=== PATIENT | female | born 1980 | race African-American/Black ===

== ENCOUNTER 2025-06-13 20:23 | Inpatient (IN) | payer MEDICAID, OTHER ==
[~2025-06-13] VITALS: Ht 157.5 cm; Wt 78.8 kg
[~2025-06-13 20:23] MED LIST: ACYC1TAB2 PO; ALPR1TAB2 PO; EMPA1TAB PO; FURO40TA4 PO; METO25TA93 PO; PANT40T PO; POTA-180 PO; SPIR25TA8 PO; TORS20TA19 PO
[2025-06-13] MEDS: FUROSEMIDE 20 MG TAB PO ONE (21:00)
--- NOTE | 2025-06-13 21:12 | ED.PDOC ---
History of Present Illness HPI Comments 44 y/o obese F, with a Hx of, recently, Dx AL amyloidosis and CHF, presents with c/c shortness of breath. Patient reports on, recently, moving from [place], earlier, today, prior to becoming short of breath. She comments on, usually, becoming short of breath with fluid retention secondary to her AL amyloidosis. Currently, she is seeking establishing chemotherapy care through [facility] but is not scheduled to be seen until the beginning of June 2025. No reported modifiers. No endorsement of any recent sick contact, travel, injuries, or further pertinent events or history. Denial fo any chest pain, cough, congestion, fever, chills, or further associated symptoms. Chief Complaint: Shortness of Breath Time Seen by MD: 20:40 Reviewed Notes: Nurses Notes, Medications, Allergies Allergies: Coded Allergies: Cephalexin (Verified Allergy, Intermediate, CHEST PAIN, 12/14/13) Home Meds Reported Medications Alprazolam (Xanax) 1 Mg Tab, 1 MG PO, TAB 12/14/13 Information Source: Patient Mode of Arrival: Ambulatory Severity: Moderate Timing: Hours Duration: Since onset Prehospital treatment: None Past Medical History PAST MEDICAL HISTORY: Anxiety, CHF Past Medical History (Other): AL amyloidosis Surgical History: Denies all surgeries Family History Family History (Other): depression Social History Smoker: Cigarettes, Less Than 1 Pack/Day Alcohol: Occasionally Drugs: Denies Drug Use Lives In: Home All Other Systems: Reviewed and Negative (Comprehensive review of systems are n egative unless stated in HPI) Physical Exam General Appearance: No Apparent Distress, Obese HEENT: Normal ENT Inspection, Pharynx Normal, TMs Normal Neck: Full Range of Motion, Non-Tender, Normal, Normal Inspection Respiratory: Chest Non-Tender, Lungs Clear, No Accessory Muscle Use, No Respiratory Distress, Normal Breath Sounds Cardiovascular: No Edema, No JVD, No Murmur, No Gallop, Normal Peripheral Pulses, Regular Rate/Rhythm Breast Exam: Deferred Gastrointestinal: No Organomegaly, Non Tender, No Pulsatile Mass, Normal Bowel Sounds, Soft Genitalia: Deferred Pelvic: Deferred Rectal: Deferred Extremities: No calf tenderness, Normal capillary refill, Normal inspection, Normal range of motion, Non-tender, No pedal edema Musculoskeletal : Apperance: Normal Neurologic: Alert, retail merchandising manager II-XII nml as Tested, No Motor Deficits, Normal Affect, Normal Mood, No Sensory Deficits Cerebellar Function: Normal Reflexes: Normal Skin: Dry, Normal Color, Warm Lymphatic: No Adenopathy Was a procedure done? Was a procedure done?: No Differential Dx Considerations may include: Acute CHF exacerbation, fluid retention, pulmonary effusion, PNA, URI, viral syndrome, NM, PE, among others X-Ray, Labs, Meds, VS Vital Signs Date Time Temp Pulse Resp B/P (MAP) Pulse Ox O2 Delivery O2 Flow Rate FiO2 06/13/25 20:26 97.5 104 20 113/78 100 97.5 Lab Test 06/13/25 21:22 Range/Units White Blood Count 14.4 H 4.4-10.8 10^3/uL Red Blood Count 3.75 L 4.0-5.20 10^6/uL Hemoglobin 10.2 L 12.2-16.2 g/dL Hematocrit 32.3 L 36.0-46.0 % Mean Corpuscular Volume 86.1 80.0-100.0 fL Mean Corpuscular Hemoglobin 27.2 L 28.0-32.0 pg Mean Corpuscular Hemoglobin Concent 31.5 L 32.0-36.0 g/dL Red Cell Distribution Width 28.9 H 11.8-14.3 % Platelet Count 344 140-450 10^3/uL Mean Platelet Volume 8.0 6.9-10.8 fL Neutrophils (%) (Auto) 70.5 37.0-80.0 % Lymphocytes (%) (Auto) 21.4 10.0-50.0 % Monocytes (%) (Auto) 6.7 0.0-12.0 % Eosinophils (%) (Auto) 0.8 0.0-7.0 % Basophils (%) (Auto) 0.6 0.0-2.0 % Neutrophils # (Auto) 10.2 H 1.6-8.6 10 ^3/uL Lymphocytes # (Auto) 3.1 0.4-5.4 10 ^3/uL Monocytes # (Auto) 1.0 0-1.3 10 ^3/uL Eosinophils # (Auto) 0.1 0-0.8 10 ^3/uL Basophils # (Auto) 0.1 0-0.2 10 ^3/uL Nucleated Red Blood Cells 0.7 % Sodium Level 143 136-145 mmol/L Potassium Level 3.9 3.5-5.1 mmol/L Chloride Level 105 98-107 mmol/L Carbon Dioxide Level 27 20-31 mmol/L Anion Gap 11 5-15 Blood Urea Nitrogen 12 9-23 mg/dL Creatinine 1.35 H 0.550-1.02 mg/dL Glomerular Filtration Rate Calc 50 >90 mL/min BUN/Creatinine Ratio 8.9 L 10.0-20.0 Serum Glucose 105 74-106 mg/dL Calcium Level 9.2 8.7-10.4 mg/dL Total Bilirubin 1.0 0.2-1.0 mg/dL Aspartate Amino Transferase (AST) 34 13-40 U/L Alanine Aminotransferase (ALT) 29 7-40 U/L Alkaline Phosphatase 70 46-116 U/L Troponin I High Sensitivity 101 *H </=34 ng/L B-Type Natriuretic Peptide 980.63 0-100 pg/mL Total Protein 7.1 5.7-8.2 g/dL Albumin 4.3 3.2-4.8 g/dL [place] [id number] Ph: [phone] DIAGNOSTIC IMAGING Diagnostic Imaging Report : [id number] Signed PATIENT: SALUD KINCAID ACCT: [id number] UNIT: [id number] : 1980 LOC: ER ROOM / BED: / AGE / SEX: 44 / F ADM STATUS: REG ER SERVICE 46 ORDERING PHYSICIAN: DONNELL LOUIS MD PROCEDURE(s): CXRP - CHEST PORTABLE REASON: SOB ORDER NUMBER(s): [id number], ACCESSION NUMBER(s): [id number] CHEST RADIOGRAPH REASON FOR EXAM: SOB COMPARISON: None TECHNIQUE: One view of the chest is provided FINDINGS: The cardiomediastinal silhouette is within normal limits for technique. There is no focal airspace disease. There is no significant pleural effusion. No acute bony abnormality is identified. IMPRESSION: No radiographic evidence of acute cardiopulmonary process. ATED BY: MARGARITO NGUYEN MD DICTATED DATE/TIME: 06/13/252123 SIGNED BY: MARGARITO NGUYEN MD SIGNED DATE/TIME: 06/13/252123 CC: Time of 1ST Reevaluation: 21:10 Reevaluation 1ST: Unchanged Patient Education/Counseling: Treatment, Need For Follow Up Family Education/Counseling: No Family Present SEPSIS Sepsis Screen Date sepsis recognized/suspect: Jun 13, 2025 Time Sepsis recognized/suspect: 2029 Recent Procedure: No On Antibiotic Therapy: No Respiratory Rate >20: No Heart Rate >90: Yes Temp<36 C (96.8 F) or >38.3 C: No SBP <90 or MAP <65 mmHG: No New Acute Mental Status Change: No Is the patient on CPAP, BIPAP,: No Physician Orders Chest Portable (06/13/25 20:47) Troponin-I Hs (06/13/25 21:47) Troponin-I Hs (06/13/25 23:47) Vital Signs Date Time Temp Pulse Resp B/P (MAP) Pulse Ox O2 Delivery O2 Flow Rate FiO2 06/13/25 20:26 97.5 104 20 113/78 100 97.5 Laboratory Tests Test 06/13/25 21:22 White Blood Count 14.4 10^3/uL (4.4-10.8) H Departure 1 Departure Time of Disposition: 23:02 Impression: Primary Impression: Amyloidosis Additional Impressions: Congestive heart failure Acute coronary syndrome Disposition: ADMITTED INPATIENT Admit to: Tele Condition: Guarded Comments 44-year-old female with history of amyloidosis and CHF now complaining of shortness of breath especially when she lays down. Her troponin was elevated 100. BNP was quite elevated as well. Patient was given Lasix and aspirin. Patient will need to be admitted for amyloidosis, congestive heart failure and acute coronary syndrome Critical Care Note Critical Care Time?: Yes (35 min-critical care time only) Critical care comment: Total critical care time: Approximately 36 minutes Due to a high probability of clinically significant, life threatening deterioration, the patient required my highest level of preparedness to intervene emergently and I personally spent this critical care time directly and personally managing the patient. This critical care time included obtaining a history; examining the patient; pulse oximetry; ordering and review of studies; arranging urgent treatment with development of a management plan; evaluation of patient's response to treatment; frequent reassessment; and, discussions with other providers. This critical care time was performed to assess and manage the high probability of imminent, life-threatening deterioration that could result in multi-organ failure. It was exclusive of separately billable procedures and treating other patients. Stability Stability form required: No Heart Score Heart Score: Heart Score Response (Comments) Value History Moderate Suspicious 1 EKG Repolarization Disturb 1 Age <45 0 Risk Factors 1 or 2 risk factors 1 Troponin 1-2 x's Normal limit 1 Total 4 I personally scribed for DONNELL LOUIS MD ([email or web address]) on 06/13/25 at 21:12. Electronically submitted by Lencho Patel ([email or web address]). I personally scribed for DONNELL LOUIS MD ([email or web address]) on 06/13/25 at 22:04. Electronically submitted by Lencho Patel ([email or web address]). I personally scribed for DONNELL LOUIS MD ([email or web address]) on 06/13/25 at 23:00. Electronically submitted by Lencho Patel ([email or web address]). DONNELL LOUIS MD Jun 13, 2025 21:12
--- NOTE | 2025-06-13 21:26 | DVH ---
CHEST RADIOGRAPH REASON FOR EXAM: SOB COMPARISON: None TECHNIQUE: One view of the chest is provided FINDINGS: The cardiomediastinal silhouette is within normal limits for technique. There is no focal a irspace disease. There is no significant pleural effusion. No acute bony abnormality is identified. IMPRESSION: No radiographic evidence of acute cardiopulmonary process.
[2025-06-13 21:54] LABS: Hematocrit 32.3 % (36.0-46.0); Hemoglobin 10.2 g/dL (12.2-16.2); Mean Corpuscular Hemoglobin 27.2 pg (28.0-32.0); Mean Corpuscular Volume 86.1 fL (80.0-100.0); Nucleated Red Blood Cells % 0.7 %
[2025-06-13 22:12] LABS: Alanine Aminotransferase 29 U/L (7-40); Albumin 4.3 g/dL (3.2-4.8); Alkaline Phosphatase 70 U/L (46-116); Anion Gap 11 (5-15); BUN/Creatinine Ratio 8.9 (10.0-20.0); Blood Urea Nitrogen 12 mg/dL (9-23); Calcium 9.2 mg/dL (8.7-10.4); Carbon Dioxide 27 mmol/L (20-31); Chloride 105 mmol/L (98-107); Glucose 105 mg/dL (74-106); Potassium 3.9 mmol/L (3.5-5.1); Sodium 143 mmol/L (136-145); Total Protein 7.1 g/dL (5.7-8.2)
[2025-06-13 22:13] LABS: Bilirubin, Total 1.0 mg/dL (0.2-1.0)
[2025-06-13 23:48] VITALS: RESP 19; O2SAT 98
[2025-06-13] MEDS: FUROSEMIDE 40 MG/4 ML VIAL IV ONE (23:55)
[2025-06-14] VITALS (11 sets, daily range): BP systolic 98–117; BP diastolic 57–86; PULSE 52–103; RESP 14–19; TEMP 97.2–97.9; O2SAT 92–98
[2025-06-14] MEDS ORDERED: MORPHINE SULFATE INJ 2 MG/ml SYRG IV PRN
[2025-06-14] MEDS ORDERED: NITROGLYCERIN 0.4 MG SL TAB SL PRN
[2025-06-14] MEDS ORDERED: TEMAZEPAM 15 MG CAP PO PRN (01:00)
--- NOTE | 2025-06-14 04:37 | DVHHP2 ---
History of Present Illness Reason for Visit: Shortness for breath History of Present Illness 44-year-old female presents for evaluation of shortness for breath. Patient endorses a one day history of shortness for breath with associated chest tightness. Denies fever or chills. States having a nonproductive cough. Patient also reports a recent diagnosis of amyloidosis. Past Medical History Congestive heart failure, amyloidosis, hypertension Past Surgical History Denies Family History Noncontributory Smoke: <1 pack per day ALCOHOL: occassional Drugs: None Review of Systems Review of Systems Review of systems are currently negative otherwise addressed in HPI. Allergies: Coded Allergies: Cephalexin (Verified Allergy, Intermediate, CHEST PAIN, 12/14/13) Medications Current Medications Medications Dose Ordered Sig/Semaj Route Start Time Stop Time Status Last Admin Dose Admin Nitroglycerin 0.4 mg Q5MINP PRN SL 06/14/25 00:00 Morphine Sulfate 2 mg Q30M PRN IV 06/14/25 00:00 Aspirin 162 mg DAILY PO 06/14/25 10:00 Atorvastatin Calcium 10 mg HS PO 06/14/25 22:00 Empaglifozin 10 mg DAILY PO 06/14/25 10:00 Furosemide 20 mg BIDD IV 06/14/25 06:00 Spironolactone 25 mg DAILY PO 06/14/25 10:00 Metoprolol Succinate 25 mg DAILY PO 06/14/25 10:00 Albuterol 2.5 mg Q6HPRN PRN NEB 06/14/25 01:00 Acetaminophen/ Hydrocodone Bitart 1 tab Q4HP PRN PO 06/14/25 01:00 Temazepam 15 mg QHSP PRN PO 06/14/25 01:00 Ondansetron HCl 4 mg Q4HP PRN IV 06/14/25 01:00 Acetaminophen 650 mg Q6HP PRN PO 06/14/25 01:00 Exam Vital Signs Vital Signs Date Time Temp Pulse Resp B/P (MAP) Pulse Ox O2 Delivery O2 Flow Rate FiO2 06/14/25 01:04 98 Room Air* 0 21 06/14/25 01:00 97.5 96 19 113/82 97.5 Exam Gen: 44-year-old female in mild distress. Skin: Warm, dry, normal color and texture, no rash. HEENT: Normocephalic atraumatic, mucous membranes moist and pink. Neck: Cervical and supraclavicular nodes normal without enlargement, trachea is midline, thyroid gland is normal without masses. Pulmonary: Diminished breath sounds bilaterally Cardiac: Regular rate and rhythm. No murmur Abdomen: Soft, nontender, nondistended, bowel sounds present all 4 quadrants, no guarding, no rigidity, no organomegaly. Extremities: No cyanosis, clubbing, no edema Neuro: Cranial nerves II through XII grossly intact, normal affect and speech, no focal motor deficits. Labs/Xrays ORDERING PHYSICIAN: DONNELL LOUIS MD PROCEDURE(s): CXRP - CHEST PORTABLE REASON: SOB ORDER NUMBER(s): [id number], ACCESSION NUMBER(s): [id number] CHEST RADIOGRAPH REASON FOR EXAM: SOB COMPARISON: None TECHNIQUE: One view of the chest is provided FINDINGS: The cardiomediastinal silhouette is within normal limits for technique. There is no focal airspace disease. There is no significant pleural effusion. No acute bony abnormality is identified. IMPRESSION: No radiographic evidence of acute cardiopulmonary process. Labs Test 06/14/25 00:29 06/13/25 21:22 Range/Units Troponin I High Sensitivity 108 *H </=34 ng/L White Blood Count 14.4 H 4.4-10.8 10^3/uL Red Blood Count 3.75 L 4.0-5.20 10^6/uL Hemoglobin 10.2 L 12.2-16.2 g/dL Hematocrit 32.3 L 36.0-46.0 % Mean Corpuscular Volume 86.1 80.0-100.0 fL Mean Corpuscular Hemoglobin 27.2 L 28.0-32.0 pg Mean Corpuscular Hemoglobin Concent 31.5 L 32.0-36.0 g/dL Red Cell Distribution Width 28.9 H 11.8-14.3 % Platelet Count 344 140-450 10^3/uL Mean Platelet Volume 8.0 6.9-10.8 fL Neutrophils (%) (Auto) 70.5 37.0-80.0 % Lymphocytes (%) (Auto) 21.4 10.0-50.0 % Monocytes (%) (Auto) 6.7 0.0-12.0 % Eosinophils (%) (Auto) 0.8 0.0-7.0 % Basophils (%) (Auto) 0.6 0.0-2.0 % Neutrophils # (Auto) 10.2 H 1.6-8.6 10 ^3/uL Lymphocytes # (Auto) 3.1 0.4-5.4 10 ^3/uL Monocytes # (Auto) 1.0 0-1.3 10 ^3/uL Eosinophils # (Auto) 0.1 0-0.8 10 ^3/uL Basophils # (Auto) 0.1 0-0.2 10 ^3/uL Nucleated Red Blood Cells 0.7 % Sodium Level 143 136-145 mmol/L Potassium Level 3.9 3.5-5.1 mmol/L Chloride Level 105 98-107 mmol/L Carbon Dioxide Level 27 20-31 mmol/L Anion Gap 11 5-15 Blood Urea Nitrogen 12 9-23 mg/dL Creatinine 1.35 H 0.550-1.02 mg/dL Glomerular Filtration Rate Calc 50 >90 mL/min BUN/Creatinine Ratio 8.9 L 10.0-20.0 Serum Glucose 105 74-106 mg/dL Calcium Level 9.2 8.7-10.4 mg/dL Total Bilirubin 1.0 0.2-1.0 mg/dL Aspartate Amino Transferase (AST) 34 13-40 U/L Alanine Aminotransferase (ALT) 29 7-40 U/L Alkaline Phosphatase 70 46-116 U/L B-Type Natriuretic Peptide 980.63 0-100 pg/mL Total Protein 7.1 5.7-8.2 g/dL Albumin 4.3 3.2-4.8 g/dL SEPSIS Sepsis Screen Date sepsis recognized/suspect: Jun 13, 2025 Time Sepsis recognized/suspect: 2348 Recent Procedure: No On Antibiotic Therapy: No Respiratory Rate >20: No Heart Rate >90: No Temp<36 C (96.8 F) or >38.3 C: No SBP <90 or MAP <65 mmHG: No New Acute Mental Status Change: No Is the patient on CPAP, BIPAP,: No Physician Orders Chest Portable (06/13/25 20:47) Admit (06/13/25 23:57) Nitroglycerin Sublingual (Ntrostat Subli (06/14/25 00:00) Morphine Sulfate Injection (06/14/25 00:00) Stat Ekg For Chest Pain (06/13/25 23:57) Notify Md Of Changes From Base (06/13/25 23:57) Powder Carrier For 24 Hours (06/13/25 23:57) Emergency Dysrhythmia Protocol (06/13/25 23:57) Rhythm Strips Once Every Shift (06/13/25 23:57) Oxygen By Nasal Cannula (06/13/25 23:57) Aspirin Tablet (06/14/25 10:00) Atorvastatin (Lipitor) (06/14/25 22:00) * Cardiology Consult (06/14/25 00:50) Empagliflozin (Jardiance) (06/14/25 10:00) Furosemide Injection (Lasix Injection) (06/14/25 06:00) Spironolactone (Aldactone) (06/14/25 10:00) Metoprolol Xl Succinate (Toprol Xl) (06/14/25 10:00) Albuterol Medneb (Ventolin Medneb) (06/14/25 01:00) * Hematology/Oncology Consult (06/14/25 00:50) Basic Metabolic Panel (06/14/25 04:00) Hydrocodone-Acet 5/325mg Tab (Weinert 5/32 (06/14/25 01:00) Temazepam (Restoril) (06/14/25 01:00) Ondansetron Hcl (Zofran) (06/14/25 01:00) Cardiac Diet-2gna,Lofat,Lochol (06/14/25 Breakfast) Echo 2d Mode Cardiac Dop (06/14/25 00:50) Condition: Stable (06/14/25 00:50) Acetaminophen Tablet (Tylenol Tablet) (06/14/25 01:00) Bedrest With Bathroom Privileg (06/14/25 00:50) Vital Signs Date Time Temp Pulse Resp B/P (MAP) Pulse Ox O2 Delivery O2 Flow Rate FiO2 06/14/25 01:04 98 Room Air* 0 21 06/14/25 01:04 98 Nasal Cannula 0.0 06/14/25 01:00 97.5 96 19 113/82 98 21 97.5 06/14/25 01:00 98 0.0 21 06/13/25 23:55 113/82 06/13/25 23:48 19 98 Room Air* 0 21 06/13/25 23:43 96 19 113/82 (92) 96 Laboratory Tests Test 06/13/25 21:22 White Blood Count 14.4 10^3/uL (4.4-10.8) H Medications Medications Dose Ordered Sig/Semaj Route Start Time Stop Time Status Last Admin Dose Admin Aspirin 162 mg ONCE ONCE PO 06/13/25 23:00 06/13/25 23:01 DC 06/13/25 23:55 162 MG Furosemide 40 mg ONCE ONCE IV 06/13/25 23:00 06/13/25 23:01 DC 06/13/25 23:55 40 MG Assessment/Plan Assessment/Plan Assessment On chronic respiratory failure CHF exacerbation Amyloidosis Elevated troponin Acute kidney injury Plan Admit the patient to telemetry to the hospitalist Cardiology consultation Hematology consult Resume home medications Continue treatment per orders. Plan discussed with: Patient My Orders Orders - NOÉ ESPINOSA AGACNP Procedure Category Date Status Time Admit ADMIT 06/13/25 Transmitted 23:57 Nitroglycerin PHA 06/14/25 In Process Sublingual (Ntrostat 00:00 Morphine Sulfate PHA 06/14/25 In Process Injection 00:00 Stat Ekg For Chest DALJIT 06/13/25 In Process Pain 23:57 Notify Of Changes [facility] 06/13/25 In Process From Base 23:57 Powder Carrier For [facility] 06/13/25 In Process 24 Hours 23:57 Emergency Dysrhythmia [facility] 06/13/25 In Process Protocol 23:57 Rhythm Strips Once [facility] 06/13/25 In Process Every Shift 23:57 Oxygen By Nasal RT 06/13/25 Transmitted Cannula 23:57 Aspirin Tablet PHA 06/14/25 In Process 10:00 Atorvastatin (Lipitor) PHA 06/14/25 In Process 22:00 * Cardiology Consult CONS 06/14/25 Transmitted 00:50 Empagliflozin PHA 06/14/25 In Process (Jardiance) 10:00 Furosemide Injection PHA 06/14/25 In Process (Lasix Injection) 06:00 Spironolactone PHA 06/14/25 In Process (Aldactone) 10:00 Metoprolol Xl PHA 06/14/25 In Process Succinate (Toprol Xl) 10:00 Albuterol Medneb PHA 06/14/25 In Process (Ventolin Medneb) 01:00 * Hematology/Oncology CONS 06/14/25 Transmitted Consult 00:50 Basic Metabolic Panel LAB 06/14/25 Logged 04:00 Hydrocodone-Acet PHA 06/14/25 In Process 5/325mg Tab (Weinert 01:00 Temazepam (Restoril) PHA 06/14/25 In Process 01:00 Ondansetron Hcl PHA 06/14/25 In Process (Zofran) 01:00 Cardiac DIET 06/14/25 Transmitted Diet-2gna,Lofat,Lochol Breakfast Echo 2d Mode Cardiac US 06/14/25 Logged DOP 00:50 Condition: Stable DALJIT 06/14/25 In Process 00:50 Acetaminophen Tablet PHA 06/14/25 In Process (Tylenol Tablet) 01:00 Bedrest With Bathroom DALJIT 06/14/25 In Process Privileg 00:50 Date of Service: Jun 14, 2025 Billing Provider: NOÉ ESPINOSA Common Visit Codes: [id number] INP/OBS CARE (HIGH) NOÉ ESPINOSA Jun 14, 2025 04:37
[2025-06-14] MEDS: FUROSEMIDE 20 MG/2 ML VIAL IV SCH (06:11)
[2025-06-14 06:33] LABS: Anion Gap 13 (5-15); Carbon Dioxide 26 mmol/L (20-31); Chloride 103 mmol/L (98-107); Potassium 4.4 mmol/L (3.5-5.1); Sodium 142 mmol/L (136-145)
[2025-06-14 06:34] LABS: Calcium 9.6 mg/dL (8.7-10.4)
[2025-06-14 06:39] LABS: Glucose 92 mg/dL (74-106)
[2025-06-14 06:40] LABS: BUN/Creatinine Ratio 11.4 (10.0-20.0); Blood Urea Nitrogen 13 mg/dL (9-23)
[2025-06-14] MEDS: METOPROLOL SUCCINATE XL 50 MG TAB PO SCH (10:26)
[2025-06-14] MEDS: EMPAGLIFLOZIN 10 MG TAB PO SCH (10:26)
[2025-06-14] MEDS: SPIRONOLACTONE 25 MG TAB PO SCH (10:26)
[2025-06-14] MEDS ORDERED: POTA1TAB4 (12:46)
[2025-06-14] MEDS ORDERED: PANT40TA57 PO (12:51)
--- NOTE | 2025-06-14 18:38 | DVHSR ---
APPROVED REPORT EXAM: Two-dimensional and M-mode echocardiogram with Doppler and color Doppler. Blood Pressure: 105/73 mmHg INDICATION EF RISK FACTORS Height: 5'2", Weight: 171 DIMENSIONS LVDd3.5 (3.8-5.7cm)LA (2D)4.8 (1.9-4.0cm)Aortic Root3.1 (2.0-3.7cm) LVDs2.6 (2.5-4.0cm)LA (MM) (1.9-4.0cm)Aortic Cusp Exc1.8 (1.5-2.0cm) EF (%) 53.0 (55-70%)Rt. Atrium3.8 (1.9-4.0cm)Asc. Aorta cm IVSd1.5 (0.7-1.1cm)RV (D)3.5 (1.8-2.4cm) PWd1.7 (0.7-1.1cm) Mitral Valve MitralMitral Stenosis E wave0.87m/sMV Mean GR.mmHg A wave0.25m/sMV Peak GR.mmHg E/A ratio3.52D MVAcm2 DECEL [id number] 1/2 Timems Aortic Valve Aortic ValveAortic Stenosis V11.18m/Mitzy Mean GR.6mmHg V21.60m/Mitzy Peak GR.10mmHg LVOT Diameter1.7 (1.8-2.4cm)Doppler AVA1.67cm2 Pulmonic Valve V20.73m/s Tricuspid Valve TR Velocity2.74m/s [id number] Conclusion MODERATE DEGREE LVH AND MODERATE DEGREE LV DIASTOLIC DYSFUNCTION LV EF IS 60% AND IS NORMAL NORMAL VALVES NO EFFUSION
[2025-06-14] MEDS: ATORVASTATIN 20 MG TAB PO SCH (21:07)
[2025-06-14] MEDS: ACETAMINOPHEN 325 MG TAB PO PRN (21:11)
[2025-06-15] VITALS (11 sets, daily range): BP systolic 94–102; BP diastolic 62–74; PULSE 70–101; RESP 12–18; TEMP 97–98.3; O2SAT 97–100
[2025-06-15] MEDS: FUROSEMIDE 20 MG TAB PO SCH (09:19)
--- NOTE | 2025-06-15 12:21 | DVHPN2 ---
Subjective States breathing has not improved Reviewed: Care Plan, H&P, Labs, Medications Changes from previous H/P or p: No Changes General: Per HPI Objective Vitals Vital Signs Date Time Temp Pulse Resp B/P (MAP) Pulse Ox O2 Delivery O2 Flow Rate FiO2 06/15/25 09:20 97.6 84 17 101/62 (75) 97 97.6 06/15/25 07:47 Room Air* 0 21 General Appearance: Alert, Oriented X3, Cooperative, No acute distress HEENT: Atraumatic, PERRLA Lungs: Clear to auscultation, Normal air movement Cardiovascular: Normal S1, Normal S2 Abdomen: Normal bowel sounds, Soft, No tenderness, No hepatospenomegaly Genitourinary: No Apparent Abnormalities Musculoskeletal: Normal sensory function, Normal motor function Skin: Dry, Intact Psych/Mental Status: Mental status NL, Mood NL Medications Current Medications Medications Dose Ordered Sig/Semaj Route Start Time Stop Time Status Last Admin Dose Admin Nitroglycerin 0.4 mg Q5MINP PRN SL 06/14/25 00:00 Morphine Sulfate 2 mg Q30M PRN IV 06/14/25 00:00 Aspirin 162 mg DAILY PO 06/14/25 10:00 06/15/25 09:18 162 MG Atorvastatin Calcium 10 mg HS PO 06/14/25 22:00 06/14/25 21:07 10 MG Spironolactone 25 mg DAILY PO 06/14/25 10:00 06/15/25 09:19 25 MG Metoprolol Succinate 25 mg DAILY PO 06/14/25 10:00 06/15/25 09:19 25 MG Albuterol 2.5 mg Q6HPRN PRN NEB 06/14/25 01:00 Acetaminophen/ Hydrocodone Bitart 1 tab Q4HP PRN PO 06/14/25 01:00 Temazepam 15 mg QHSP PRN PO 06/14/25 01:00 Ondansetron HCl 4 mg Q4HP PRN IV 06/14/25 01:00 Acetaminophen 650 mg Q6HP PRN PO 06/14/25 01:00 06/14/25 21:11 650 MG Furosemide 20 mg DAILY PO 06/15/25 10:00 06/15/25 09:19 20 MG Laboratory Results Laboratory Tests 06/13/25 21:22 06/14/25 05:49 Labs and/or images reviewed: Labs reviewed by me, Image(s) reviewed by me Assessment/Plan Assessment/Plan Impression: -AL Amyloidosis -Decompensated diastolic HF -Obesity -SIRS Plan: -echocardiogram -check D-dimer, ESR, CRP -continue beta-naif therapy, add HAMZAH inhibitor if blood pressure permits -IV diuresis -social service consultation to transfer to higher level of care Total time spent with patient discussing and formulating plan of care: 35 minutes. This medical document was created using an electronic medical record system with [employer] dictation system. Although this document has been carefully reviewed, there may still be some phonetic and typographical errors. These areas are purely typographical due to imperfections of the software programs, and do not reflect any compromise in the patient's medical care. Plan discussed with: Patient, Other (Rn) My Orders Orders - CEZAR GARNETT NP Procedure Category Date Status Time * Wet Inspector Optical Glass CONS 06/14/25 Transmitted Consult Furosemide Tablet PHA 06/15/25 In Process (Lasix Tablet) 10:00 * Cardiology Consult CONS 06/15/25 Verified 12:07 Basic Metabolic Panel LAB 06/16/25 Verified 04:00 Chest Portable XY 06/15/25 Verified 12:07 D-Dimer LAB 06/15/25 Verified 12:07 Lisinopril Tablet PHA 06/16/25 Verified (Zestril Tablet) 10:00 Date of Service: Jun 15, 2025 Billing Provider: CEZAR GARNETT NP Common Visit Codes: [id number] INP/OBS CARE(HIGH) CEZAR GARNETT NP Jun 15, 2025 12:21
--- NOTE | 2025-06-15 12:23 | DVHPN2 ---
Subjective States breathing has not improved Reviewed: Care Plan, H&P, Labs, Medications Changes from previous H/P or p: No Changes General: Per HPI Objective Vitals Vital Signs Date Time Temp Pulse Resp B/P (MAP) Pulse Ox O2 Delivery O2 Flow Rate FiO2 06/15/25 09:20 97.6 84 17 101/62 (75) 97 97.6 06/15/25 07:47 Room Air* 0 21 General Appearance: Alert, Oriented X3, Cooperative, No acute distress HEENT: Atraumatic, PERRLA Lungs: Clear to auscultation, Normal air movement Cardiovascular: Normal S1, Normal S2 Abdomen: Normal bowel sounds, Soft, No tenderness, No hepatospenomegaly Genitourinary: No Apparent Abnormalities Musculoskeletal: Normal sensory function, Normal motor function Skin: Dry, Intact Psych/Mental Status: Mental status NL, Mood NL Medications Current Medications Medications Dose Ordered Sig/Semaj Route Start Time Stop Time Status Last Admin Dose Admin Nitroglycerin 0.4 mg Q5MINP PRN SL 06/14/25 00:00 Morphine Sulfate 2 mg Q30M PRN IV 06/14/25 00:00 Aspirin 162 mg DAILY PO 06/14/25 10:00 06/15/25 09:18 162 MG Atorvastatin Calcium 10 mg HS PO 06/14/25 22:00 06/14/25 21:07 10 MG Spironolactone 25 mg DAILY PO 06/14/25 10:00 06/15/25 09:19 25 MG Metoprolol Succinate 25 mg DAILY PO 06/14/25 10:00 06/15/25 09:19 25 MG Albuterol 2.5 mg Q6HPRN PRN NEB 06/14/25 01:00 Acetaminophen/ Hydrocodone Bitart 1 tab Q4HP PRN PO 06/14/25 01:00 Temazepam 15 mg QHSP PRN PO 06/14/25 01:00 Ondansetron HCl 4 mg Q4HP PRN IV 06/14/25 01:00 Acetaminophen 650 mg Q6HP PRN PO 06/14/25 01:00 06/14/25 21:11 650 MG Furosemide 20 mg DAILY PO 06/15/25 10:00 06/15/25 09:19 20 MG Laboratory Results Laboratory Tests 06/13/25 21:22 06/14/25 05:49 Labs and/or images reviewed: Labs reviewed by me Assessment/Plan Assessment/Plan Impression: -AL Amyloidosis -Decompensated diastolic HF -Obesity -SIRS -Complicated Cystitis Plan: -Discussed with Dr. Alonzo, Urology. Holding cystoscopy, hematuria improved. -Continue IVF -Urine Culture -Continue Rocephin -Repeat labs in am -Social Service consult to transfer to [facility] Plan discussed with: Patient My Orders Orders - CEZAR GARNETT WATCH CASE POLISHER Procedure Category Date Status Time * Engineering Technician Parking CONS 06/14/25 Transmitted Consult Furosemide Tablet PHA 06/15/25 In Process (Lasix Tablet) 10:00 * Cardiology Consult CONS 06/15/25 Verified 12:07 Basic Metabolic Panel LAB 06/16/25 Verified 04:00 Chest Portable XY 06/15/25 Verified 12:07 D-Dimer LAB 06/15/25 Verified 12:07 Lisinopril Tablet PHA 06/16/25 Verified (Zestril Tablet) 10:00 Date of Service: Jun 14, 2025 Billing Provider: CEZAR GARNETT NP Common Visit Codes: [id number] INP/OBS CARE(HIGH) CEZAR GARNETT NP Jun 15, 2025 12:23
--- NOTE | 2025-06-15 13:48 | DVH ---
EXAM: XY CHEST PORTABLE Indication: chf Technique: Single frontal view of the chest was obtained Comparison: XY CHEST PORTABLE on DOS: 06/13/25 FINDINGS: Lines and Tubes: None Lungs: No focal consolidation. Pleura: No effusion. No pneumothorax. Cardiomediastinal contours: Unremarkable Bones: No acute osseous abnormality. IMPRESSION: No acute cardiopulmonary disease.
--- NOTE | 2025-06-15 13:53 | DVHINCON2 ---
Date Seen: Jun 15, 2025 Referring Physician JENNY Richard Reason for Consultation Cardiac amyloidosis History of Present Illness This is a 44-year-old female patient who presents to emergency room with chief complaint of worsening shortness of breath for two days prior to emergency room arrival. The patient reports that she recently moved back to this area from [place]. She reports noticing symptoms during her move across country. Cardiology has now been consulted for cardiac amyloidosis. No initial twelve lead electrocardiogram was obtained in the emergency room on admission. A twelve lead electrocardiogram was ordered at time of assessment and reveals normal sinus rhythm with nonspecific ST depression to lateral leads. At the time of assessment, the patient denies any shortness of breath, chest pain, palpitations, or other cardiac symptoms. Initial troponin level of 101ng/L with flat trend thereafter. Significant past medical history includes AL (light chain) cardiac amyloidosis, hypertension, carpal tunnel syndrome, chronic anemia, and obesity. The patient reports that she was recently given the diagnosis of AL light chain amyloidosis. She had a full workup at [facility] in [place] including and a myocardial biopsy, cardiac MRI, and a bone marrow biopsy. She reports losing her job and losing her insurance causing her delay in care and ultimately having to move back to this area with family. The patient states that she has a pending upcoming appointment at [facility] with oncology on June 23, 2025. Past Medical History Past medical history reviewed. No other significant than mentioned above. Past Surgical History Denies any previous surgeries Family History: Hypertension G8 MOTHER G8 FATHER Family History Family history reviewed. Social History Patient has a five pack-year history, quit smoking approximately five years ago Denies any illicit drug use Denies alcohol use Allergies: Coded Allergies: Cephalexin (Verified Allergy, Intermediate, CHEST PAIN, 12/14/13) Home Meds Reported Medications Furosemide (Furosemide) 40 Mg Tab, 1 TAB PO DAILY for 30 Days, #30 06/15/25 Acyclovir (Acyclovir) 400 Mg Tab, 1 TAB PO BID for 30 Days, #60 06/15/25 Pantoprazole Sodium Sesquihydr (Pantoprazole Sodium) 40 Mg Tab, 1 TAB PO DAILY for 30 Days, #30 06/15/25 Potassium Chloride (Potassium Chloride ER) 20 Meq Tab, 1 TAB PO DAILY for 30 Days, #30 06/15/25 Torsemide Injection (Torsemide) 20 Mg Tab, 1 TAB PO DAILY for 30 Days, #30 06/14/25 Metoprolol Succinate (Metoprolol Succinate Er) 25 Mg Tab, 0.5 TAB PO DAILY for 90 Days, #45 06/14/25 Spironolactone (Spironolactone) 25 Mg Tab, 1 TAB PO DAILY for 30 Days, #30 06/14/25 Empagliflozin (Jardiance) 10 Mg Tab, 1 TAB PO DAILY for 30 Days, #30 06/14/25 Home Meds Home medications reviewed. Current Medications Current Medications Medications (Trade) Dose Ordered Sig/Semaj Route PRN Reason Start Time Stop Time Status Last Admin Atorvastatin Calcium (Lipitor) 10 mg HS PO 06/14/25 22:00 06/14/25 21:07 Furosemide (Lasix Tablet) 20 mg DAILY PO 06/15/25 10:00 06/15/25 09:19 Lisinopril (Zestril Tablet) 2.5 mg DAILY PO 06/16/25 10:00 Review of Systems Constitutional: No symptom reported Ears, Nose, & Throat: No symptom reported Eyes: No symptom reported Neurological: No symptoms reported Pulmonary/Respiratory: Shortness of breath Cardiovascular: No symptom reported Gastrointestinal: No symptom reported Genitourinary: No symptom reported Musculoskeletal: No symptom reported Skin: No symptom reported Psychiatric: No symptom reported Endocrine: No symptom reported Hematologic/Lymphatic: No symptom reported Vital Signs Vital Signs Date Time Temp Pulse Resp B/P (MAP) Pulse Ox O2 Delivery O2 Flow Rate FiO2 06/15/25 12:42 97.6 78 18 94/67 (76) 98 97.6 06/15/25 07:47 Room Air* 0 21 Physical Exam General Appearance: Cooperative. Well-developed. Well-nourished. No acute distress. Pulmonary/Respiratory: Clear, bilateral breaths sounds. Cardiovascular/Chest: Regular rate and rhythm. Peripheral Pulses: 2+ Radial (R). 2+ Radial (L). 2+ Pedal (R). 2+ Pedal (L) Abdominal Exam: Normal bowel sounds. Ankle Exam: Negative ankle edema Lower extremities: Negative lower extremity edema Neuro/Mental Status: A/OX4, coherent. Thoughts/Psych: Normal thought pattern. Appropriate mood and affect. Good judgment and insight. Appearance: No acute distress. Skin Exam: Normal inspection. Normal color. Warm and dry. Labs/Diagnostic Data Labs Test 06/15/25 12:44 06/14/25 19:13 06/14/25 05:49 06/14/25 00:29 Range/Units Erythrocyte Sedimentation Rate 21 H 0-20 mm/hr Sodium Level 142 136-145 mmol/L Potassium Level 4.4 3.5-5.1 mmol/L Chloride Level 103 98-107 mmol/L Carbon Dioxide Level 26 20-31 mmol/L Anion Gap 13 5-15 Blood Urea Nitrogen 13 9-23 mg/dL Creatinine 1.14 H 0.550-1.02 mg/dL Glomerular Filtration Rate Calc 61 >90 mL/min BUN/Creatinine Ratio 11.4 10.0-20.0 Serum Glucose 92 74-106 mg/dL Calcium Level 9.6 8.7-10.4 mg/dL C-Reactive Protein High Sensitivity 0.20 <1.0 mg/dL Troponin I High Sensitivity 108 *H </=34 ng/L Test 06/13/25 21:22 Range/Units White Blood Count 14.4 H 4.4-10.8 10^3/uL Red Blood Count 3.75 L 4.0-5.20 10^6/uL Hemoglobin 10.2 L 12.2-16.2 g/dL Hematocrit 32.3 L 36.0-46.0 % Mean Corpuscular Volume 86.1 80.0-100.0 fL Mean Corpuscular Hemoglobin 27.2 L 28.0-32.0 pg Mean Corpuscular Hemoglobin Concent 31.5 L 32.0-36.0 g/dL Red Cell Distribution Width 28.9 H 11.8-14.3 % Platelet Count 344 140-450 10^3/uL Mean Platelet Volume 8.0 6.9-10.8 fL Neutrophils (%) (Auto) 70.5 37.0-80.0 % Lymphocytes (%) (Auto) 21.4 10.0-50.0 % Monocytes (%) (Auto) 6.7 0.0-12.0 % Eosinophils (%) (Auto) 0.8 0.0-7.0 % Basophils (%) (Auto) 0.6 0.0-2.0 % Neutrophils # (Auto) 10.2 H 1.6-8.6 10 ^3/uL Lymphocytes # (Auto) 3.1 0.4-5.4 10 ^3/uL Monocytes # (Auto) 1.0 0-1.3 10 ^3/uL Eosinophils # (Auto) 0.1 0-0.8 10 ^3/uL Basophils # (Auto) 0.1 0-0.2 10 ^3/uL Nucleated Red Blood Cells 0.7 % Total Bilirubin 1.0 0.2-1.0 mg/dL Aspartate Amino Transferase (AST) 34 13-40 U/L Alanine Aminotransferase (ALT) 29 7-40 U/L Alkaline Phosphatase 70 46-116 U/L B-Type Natriuretic Peptide 980.63 0-100 pg/mL Total Protein 7.1 5.7-8.2 g/dL Albumin 4.3 3.2-4.8 g/dL Assessment AL light chain cardiac amyloidosis Acute on chronic HFpEF, NYHA class II NSTEMI, likely type II Hypertension Carpal tunnel syndrome Chronic anemia Obesity Plan/Recommendation We will continue with the following plan/recommendations (Dr. Shepard): A transthoracic echocardiogram reveals EF of 60% with moderate degree LVH and moderate degree LV diastolic dysfunction. Continue with guideline directed m edical management for CHF as tolerated. Diuresis tolerated. The patient reports that she was recently given the diagnosis of AL light chain amyloidosis. She had a full workup at [facility] in [place] including and a myocardial biopsy, cardiac MRI, and a bone marrow biopsy to confirm diagnosis. Per ACC guidelines, a prompt referral to Hematology/Oncology is warranted for possible chemotherapy +/- autologous stem cell transplant. In the meantime, continue with close cardiac surveillance and supportive medical management. Thank you for allowing us to care for this patient. Please call with any questions or concerns. Critical care time spent: 44 minutes This medical document was created using an electronic medical record system with voice recognition software and computerized dictation system. Although this document has been carefully reviewed, there might still be some phonetic and typographical errors. Occasional wrong-word or ``sound-alike substitutions may have occurred due to the inherent limitations of voice recognition software. These areas are purely typographical due to imperfections of the software programs and do not reflect any compromise in the patient's medical care. Please read the chart carefully and recognize, using context, where these substitutions have occurred. Plan discussed with: Patient NYHA Physical activity limitations: Class2(Slight)fatigue,sob (palpitatns, angina w activityv) Date of Service: Jun 15, 2025 Billing Provider: JAMES TRIPLETT Cardiology Common Codes: [id number] INP/OBS CARE (High) Cardiology Consultation Codes: [id number] CONSULT <45MIN JAMES TRIPLETT Jun 15, 2025 13:53
[2025-06-15 15:04] LABS: Triglycerides 118 mg/dL (< 150)
[2025-06-15 15:06] LABS: Cholesterol 163 mg/dL (< 200)
[2025-06-15 15:14] LABS: HDL Cholesterol 38 mg/dL (40-59)
[2025-06-15] MEDS: HYDROcodone-ACET 5/325MG TAB PO PRN (17:07)
[2025-06-16] VITALS (11 sets, daily range): BP systolic 91–109; BP diastolic 52–74; PULSE 78–92; RESP 16–20; TEMP 97.7–98.6; O2SAT 96–100
[2025-06-16 05:46] LABS: Calcium 9.3 mg/dL (8.7-10.4); Chloride 103 mmol/L (98-107); Potassium 3.7 mmol/L (3.5-5.1); Sodium 139 mmol/L (136-145)
[2025-06-16 05:47] LABS: Anion Gap 10 (5-15); Carbon Dioxide 26 mmol/L (20-31)
[2025-06-16 05:52] LABS: BUN/Creatinine Ratio 9.9 (10.0-20.0); Blood Urea Nitrogen 11 mg/dL (9-23); Glucose 85 mg/dL (74-106)
--- NOTE | 2025-06-16 08:01 | ECG ---
[facility] Test Date: 2025-06-15 Test Time: 13:53:56 Pat Name: SALUD KINCAID Department: Respiratoy Room: [address] [place] [address] 1 Gender: F [employer]: KARON : 1980 Requested By: JAMES TRIPLETT Order Number: [id number] Reading MD: James Shepard Measurements Intervals [place] Rate: 79 P: 10 NV: 170 QRS: 108 QRSD: 99 T: 208 QT: 436 QTc: 500 Interpretive Statements Sinus rhythm Right axis deviation Low voltage, precordial leads Anteroseptal infarct, old Nonspecific T abnormalities, lateral leads Electronically Signed On 06-21-2025 21:34:59 PDT by James Shepard Please click the below link to view image of tracing.
[2025-06-16] MEDS: ALBUTEROL SULF 2.5 MG/0.5ML(0.5%) NEB SOLN NEB PRN (09:05)
[2025-06-16] MEDS: LISINOPRIL 5 MG TAB PO SCH (09:15)
--- NOTE | 2025-06-16 14:31 | DVHPN2 ---
Subjective States breathing has not improved Reviewed: Care Plan, H&P, Labs, Medications Changes from previous H/P or p: No Changes General: Per HPI Objective Vitals Vital Signs Date Time Temp Pulse Resp B/P (MAP) Pulse Ox O2 Delivery O2 Flow Rate FiO2 06/16/25 12:58 98.6 87 16 100/71 (81) 99 98.6 06/16/25 09:05 Room Air 0.0 06/16/25 09:05 21 General Appearance: Alert, Oriented X3, Cooperative, No acute distress HEENT: Atraumatic, PERRLA Lungs: Clear to auscultation, Normal air movement Cardiovascular: Normal S1, Normal S2 Abdomen: Normal bowel sounds, Soft, No tenderness, No hepatospenomegaly Genitourinary: No Apparent Abnormalities Musculoskeletal: Normal sensory function, Normal motor function Skin: Dry, Intact Psych/Mental Status: Mental status NL, Mood NL Medications Current Medications Medications Dose Ordered Sig/Semaj Route Start Time Stop Time Status Last Admin Dose Admin Nitroglycerin 0.4 mg Q5MINP PRN SL 06/14/25 00:00 Morphine Sulfate 2 mg Q30M PRN IV 06/14/25 00:00 Aspirin 162 mg DAILY PO 06/14/25 10:00 06/16/25 09:14 162 MG Atorvastatin Calcium 10 mg HS PO 06/14/25 22:00 06/15/25 21:37 10 MG Metoprolol Succinate 25 mg DAILY PO 06/14/25 10:00 06/16/25 09:16 25 MG Albuterol 2.5 mg Q6HPRN PRN NEB 06/14/25 01:00 06/16/25 09:05 2.5 MG Acetaminophen/ Hydrocodone Bitart 1 tab Q4HP PRN PO 06/14/25 01:00 06/15/25 17:07 1 TAB Temazepam 15 mg QHSP PRN PO 06/14/25 01:00 Ondansetron HCl 4 mg Q4HP PRN IV 06/14/25 01:00 Acetaminophen 650 mg Q6HP PRN PO 06/14/25 01:00 06/14/25 21:11 650 MG Lisinopril 2.5 mg DAILY PO 06/16/25 10:00 06/16/25 09:15 2.5 MG Laboratory Results Laboratory Tests 06/13/25 21:22 06/16/25 05:10 Chemistry Test 06/16/25 05:10 Calcium Level 9.3 mg/dL (8.7-10.4) Labs and/or images reviewed: Labs reviewed by me, Image(s) reviewed by me Assessment/Plan Assessment/Plan Impression: -AL Amyloidosis -Decompensated diastolic HF -Obesity -SIRS Plan: -cardiology consultation: Recommendations reviewed -stop Lasix, diuretics given CHF resolved -continue beta-naif HAMZAH inhibitor -weaned off of O2, patient saturating 98% on room air -social service consultation: Unable to transfer to [facility], facility recommended to continue outpatient follow up on 06/23/2025 -D-dimer negative Total time spent with patient discussing and formulating plan of care: 35 minutes. This medical document was created using an electronic medical record system with [employer] dictation system. Although this document has been carefully reviewed, there may still be some phonetic and typographical errors. These areas are purely typographical due to imperfections of the software programs, and do not reflect any compromise in the patient's medical care. Plan discussed with: Patient, Other (RN) Date of Service: Jun 16, 2025 Billing Provider: CEZAR GARNETT NP Common Visit Codes: [id number] INP/OBS CARE(HIGH) CEZAR GARNETT NP Jun 16, 2025 14:31
[2025-06-16] MEDS ORDERED: LISI2.5T47 PO (14:34)
[2025-06-16] MEDS ORDERED: FURO1TAB33 PO (14:34)
[2025-06-16] MEDS ORDERED: METO25TA36 PO (14:34)
[2025-06-17] VITALS (7 sets, daily range): BP systolic 91–109; BP diastolic 53–73; PULSE 74–81; RESP 17–20; TEMP 36.8; O2SAT 97–100
[2025-06-17] MEDS: ONDANSETRON HCL 4 MG/2 ML VIAL IV PRN (02:51)
--- NOTE | 2025-06-17 12:09 | DVHDS2 ---
Discharge Summary Date of Admission Jun 13, 2025 at 23:57 Date of Discharge: Jun 17, 2025 Admitting Diagnosis CHF exacerbation Labs/Diagnostic Data: Laboratory Results Test 06/16/25 05:10 06/15/25 14:26 06/15/25 12:44 06/14/25 19:13 Sodium Level 139 mmol/L (136-145) Potassium Level 3.7 mmol/L (3.5-5.1) Chloride Level 103 mmol/L (98-107) Carbon Dioxide Level 26 mmol/L (20-31) Anion Gap 10 (5-15) Blood Urea Nitrogen 11 mg/dL (9-23) Creatinine 1.11 mg/dL (0.550-1.02) Glomerular Filtration Rate Calc 63 mL/min (>90) BUN/Creatinine Ratio 9.9 (10.0-20.0) Serum Glucose 85 mg/dL (74-106) Calcium Level 9.3 mg/dL (8.7-10.4) Hemoglobin A1c 5.1 % A1C (<5.7) Triglycerides Level 118 mg/dL (< 150) Cholesterol Level 163 mg/dL (< 200) LDL Cholesterol 108 mg/dL (< 100) HDL Cholesterol 38 mg/dL (40-59) Thyroid Stimulating Hormone (TSH) 1.13 uIU/mL (0.55-4.78) D-Dimer, Quantitative 0.36 mg/L FEU (0.0-0.49) Erythrocyte Sedimentation Rate 21 mm/hr (0-20) Test 06/14/25 05:49 06/14/25 00:29 06/13/25 21:22 C-Reactive Protein High Sensitivity 0.20 mg/dL (<1.0) Troponin I High Sensitivity 108 ng/L (</=34) White Blood Count 14.4 10^3/uL (4.4-10.8) Red Blood Count 3.75 10^6/uL (4.0-5.20) Hemoglobin 10.2 g/dL (12.2-16.2) Hematocrit 32.3 % (36.0-46.0) Mean Corpuscular Volume 86.1 fL (80.0-100.0) Mean Corpuscular Hemoglobin 27.2 pg (28.0-32.0) Mean Corpuscular Hemoglobin Concent 31.5 g/dL (32.0-36.0) Red Cell Distribution Width 28.9 % (11.8-14.3) Platelet Count 344 10^3/uL (140-450) Mean Platelet Volume 8.0 fL (6.9-10.8) Neutrophils (%) (Auto) 70.5 % (37.0-80.0) Lymphocytes (%) (Auto) 21.4 % (10.0-50.0) Monocytes (%) (Auto) 6.7 % (0.0-12.0) Eosinophils (%) (Auto) 0.8 % (0.0-7.0) Basophils (%) (Auto) 0.6 % (0.0-2.0) Neutrophils # (Auto) 10.2 10 ^3/uL (1.6-8.6) Lymphocytes # (Auto) 3.1 10 ^3/uL (0.4-5.4) Monocytes # (Auto) 1.0 10 ^3/uL (0-1.3) Eosinophils # (Auto) 0.1 10 ^3/uL (0-0.8) Basophils # (Auto) 0.1 10 ^3/uL (0-0.2) Nucleated Red Blood Cells 0.7 % Total Bilirubin 1.0 mg/dL (0.2-1.0) Aspartate Amino Transferase (AST) 34 U/L (13-40) Alanine Aminotransferase (ALT) 29 U/L (7-40) Alkaline Phosphatase 70 U/L (46-116) B-Type Natriuretic Peptide 980.63 pg/mL (0-100) Total Protein 7.1 g/dL (5.7-8.2) Albumin 4.3 g/dL (3.2-4.8) Other Laboratory Tests 06/16/25 05:10 06/13/25 21:22 Brief Hx & Hospital Course: History of Present Illness 44-year-old female presents for evaluation of shortness for breath. Patient endorses a one day history of shortness for breath with associated chest tightness. Denies fever or chills. States having a nonproductive cough. Patient also reports a recent diagnosis of amyloidosis. Course of hospitalization: Patient was given mild IV diuresis, beta-naif therapy as well as HAMZAH inhibitor. Cardiology consultation was obtained. Echocardiogram was reviewed. Given patient's underlying disease process of cardiac amyloidosis AL, patient has been instructed to follow up with her established appointment at [facility] [place] on 06/23/2025. Patient has improvement with her respiratory status. She will be discharged home on low-dose beta naif and HAMZAH inhibitor therapy. Patient will also be provided a prn dose of Lasix for lower extremity swelling or shortness of breath. Given her shortness of breaths with exertion, a walker we will be provided to the patient. Patient was agreeable with discharge plan. All questions answered. Physical examination General: Alert and Oriented x3. No acute distress. Well-nourished. Obese Eyes: EOMI. Anicteric. HENT: Moist mucous membranes. Lungs: Clear to auscultation bilaterally. No accessory muscle use. Cardiovascular: Regular rate and rhythm. No murmur. No JVD. Abdomen: Soft, non-tender and non-distended. No palpable masses. Extremities: No edema. Non-tender. Skin: No rashes or lesions. Warm. Neurologic: No focal neurological deficits. CN II-XII grossly intact, but not individually tested. Psychiatric: Cooperative. Appropriate mood and affect. Total time spent with patient discussing and formulating plan of care: 35 minutes. This medical document was created using an electronic medical record system with [employer] dictation system. Although this document has been carefully reviewed, there may still be some phonetic and typographical errors. These areas are purely typographical due to imperfections of the software programs, and do not reflect any compromise in the patient's medical care. Condition at Discharge: Poor Final Diagnosis/Problems List Decompensated heart failure secondary to AL amyloidosis -AL Amyloidosis -Decompensated diastolic HF -Obesity -SIRS Acute hypoxic respiratory failure Discharge Disposition: Home Discharge Instruct/Medications Diet: Cardiac 2g Na,low cholest Activity: No Restrictions, As Tolerated Follow Up/Referral: Follow up with established appointment at [facility] [place] [facility] on 06/23/2025 Medications: Toprol-XL 25 mg p.o. daily. Hold for systolic blood pressure less than 100 Lisinopril 2.5 mg p.o. daily hold for systolic blood pressure less than 100 Lasix 20 mg p.o. as needed extremity swelling or worsening shortness of breath. Hold for systolic blood pressure less than 100 Scheduled Acyclovir (Acyclovir), 1 TAB PO BID, (Reported) Empagliflozin (Jardiance), 1 TAB PO DAILY, (Reported) Furosemide (Furosemide), 1 TAB PO DAILY, (Reported) Lisinopril (Lisinopril), 1 TAB PO DAILY Metoprolol Succinate (Metoprolol Succinate Er), 0.5 TAB PO DAILY, (Reported) Metoprolol Succinate (Toprol Xl), 1 TAB PO DAILY Pantoprazole Sodium Sesquihydr (Pantoprazole Sodium), 1 TAB PO DAILY, (Reported) Potassium Chloride (Potassium Chloride ER), 1 TAB PO DAILY, (Reported) Spironolactone (Spironolactone), 1 TAB PO DAILY, (Reported) Torsemide Injection (Torsemide), 1 TAB PO DAILY, (Reported) Scheduled PRN Furosemide (Lasix), 1 TAB PO DAILY PRN 36 Discharge Statement: "Patient was advised to return to the ER or call 911 if any headaches, dizziness, shortness of breath, chest pain, abdominal pain, bleeding, fevers, or worsening of medical condition. Patient was counseled about treatment plan, medications, possible side effects, patientverbalized understanding. All questions were answered to the best of my ability. This discharge took greater then 30 minutes in planning, reviewing documentation, counseling the patient, and discussing with other team members." DME: Diagnosis: Cardiac amyloidosis with decompensated heart failure Patient will require Rollator walker ASSESSMENT ASSESSMENT Assessment Decompensated heart failure secondary to AL amyloidosis Date of Service: Jun 17, 2025 Billing Provider: CEZAR GARNETT NP Common Visit Codes: [id number] DISCH DAY >30min CEZAR GARNETT NP Jun 17, 2025 12:09
== END 2025-06-17 15:05 | disposition home or self-care (01) | DRG 194 ==
LOC: ER 20:23 → OVERFLOW 23:57 → TELE-EAST 06-14 11:21
PROVIDERS: ADMIT Nurse Practitioner Acute Care; ATTEND Nurse Practitioner Acute Care
DX: I11.0 Hypertensive heart disease with heart failure (principal); E85.4 Organ-limited amyloidosis; I21.A1 Myocardial infarction type 2; I50.33 Acute on chronic diastolic (congestive) heart failure; J96.10 Chronic respiratory failure, unspecified whether with hypoxia or hypercapnia; N17.9 Acute kidney failure, unspecified; Z68.32 Body mass index [BMI] 32.0-32.9, adult; E66.9 Obesity, unspecified; G56.00 Carpal tunnel syndrome, unspecified upper limb; N30.90 Cystitis, unspecified without hematuria; R65.10 Systemic inflammatory response syndrome (SIRS) of non-infectious origin without acute organ dysfunction; D64.9 Anemia, unspecified; F41.9 Anxiety disorder, unspecified; F17.210 Nicotine dependence, cigarettes, uncomplicated; I43 Cardiomyopathy in diseases classified elsewhere; Z81.8 Family history of other mental and behavioral disorders; Z82.49 Family history of ischemic heart disease and other diseases of the circulatory system; Z88.1 Allergy status to other antibiotic agents
CPT/HCPCS: 36415; 71045; 80048; 80053; 80061; 83036; 83880; 84443; 84484; 85025; 85379; 85652; 86141; 93005; 93306; 94640; 96374; 99291; G0378; J2405